=== PATIENT | female | born 1985 | race Caucasian/White ===

== ENCOUNTER 2023-06-26 15:54 | Emergency (ER) | payer MEDICARE, MEDICAID ==
[~2023-06-26] VITALS: Ht 170.2 cm; Wt 68.0 kg
[2023-06-26 15:56] VITALS: BP 162/82; PULSE 94; RESP 18; TEMP 97.9; O2SAT 99
[2023-06-26] MEDS ORDERED: FLUORESCEIN SODIUM 1MG/STRIP BOTHEYE ONE (17:00)
== END 2023-06-26 18:01 | disposition left against medical advice (07) ==
LOC: ER 15:54
DX: H57.13 Ocular pain, bilateral (principal)
CPT/HCPCS: 81025; 99283